=== PATIENT | female | born 1990 | race Caucasian/White ===

== ENCOUNTER 2017-06-20 01:06 | Inpatient (IN) | payer OTHER ==
[~2017-06-20] VITALS: Ht 165.1 cm; Wt 101.5 kg
--- NOTE | ~2017-06-20 | HC ---
[facility] [place] [address] CONSULTATION Name: TIFFANIE LAYTON Room #: 200-I [facility] IN .R.#: [id number] Admission: 06/20/17 Attend Phys: Joseph Hayes MD Discharge: 06/22/17 Date of : 86 Report #: [id number] THIS REPORT FOR: //name// CC: Joseph LUIS DATE OF SERVICE: 06/20/2017 HISTORY OF PRESENT ILLNESS: This is a 27-year-old female patient who was evaluated and discussed with the family. The patient was evaluated by me for the possibility of seizure. A detail history and physical examination is there and I reviewed that and the family brought her in because there was a possibility of seizure. She never had a history of seizure in the past. There was no tonic-clonic activity was noticed. She basically talks very little, but whenever she talks it does make sense and she is appropriate. REVIEW OF SYSTEMS: Indicate that she has a history of anxiety. She has a lost child and she is concerned with losing other children. She did have a rash recently, but that was a minor rash. She does take clonazepam and Lexapro. She does have a history of anxiety and depression. This was her relevant 14-point review of system. PAST MEDICAL HISTORY: Anxiety and depression. FAMILY HISTORY: There is no history of seizures in the family. 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 She does not smoke or drink. PHYSICAL EXAMINATION: GENERAL: Indicate she talks very slowly, but when she talks she does make sense. She is oriented and she can follow simple commands. NEUROLOGIC: Cranial nerves examination 2-12 was unremarkable. Neuromuscular examination is also unchanged. She does not appear to have any meningeal sign. CARDIAC: Unremarkable. VITAL SIGNS: Blood pressure is 94/65, respirations is 20, pulse is 63, temperature is 98.4. LABORATORY DATA: Her white count is 11.2, but she did get 2 dosages of prednisone for her rash. I do not see any imaging study in this patient. IMPRESSION: This patient has very atypical features. It is difficult to put her symptoms in any organic pathology. We will see what the workup shows. If workup is negative, she may have to consider psychiatric consult in this patient. RECOMMENDATIONS: Get the workup done in this patient as I ordered. Especially [address] [address] CONSULTATION Name: TIFFANIE LAYTON Room #: 200-I [facility] IN .R.#: [id number] Admission: 06/20/17 Attend Phys: Joseph Hayes MD Discharge: 06/22/17 Date of : 86 Report #: [id number] we will get an MRI and an EEG. If MRI and EEG are negative, then I will suggest considering a psychiatric consult in this patient. Thank you very much for this referral and if you have any question, please feel free to contact me. <ELECTRONICALLY SIGNED> By: Abisai Toth MD 06/28/172000 1129 20 Abisai Toth MD /jean-pierre
--- NOTE | ~2017-06-20 | H ---
[facility] [place] [address] HISTORY AND PHYSICAL Name: TIFFANIE LAYTON Room #: 200-I ADM IN ..#: [id number] Admission: 06/20/17 Attend Phys: Joseph Hayes MD Discharge: Date of : 86 Report #: [id number] THIS REPORT FOR: //name// CC: Joseph HOOKS DATE OF SERVICE: 06/20/2017 ATTENDING PHYSICIAN: Dr. Hayes. PRIMARY CARE PHYSICIAN: Dr. Tommy Hooks. CHIEF COMPLAINT: Delirium. HISTORY OF PRESENT ILLNESS: The patient is a 27-year-old female who was sent as a direct admit from [place] due to delirium. 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 She actually sat down on the floor and then laid down on the floor and passed out. The co-workers were trained to wake her up and she was out of it for a brief period of time. Afterwards, she was very sleepy and not acting like herself. She was complaining of a mild headache and she was taken to [place]. Her initial workup did show a mildly elevated lactate, but otherwise was negative. She had not been having any fevers. In the last few days, she and her spouse had both developed a rash in their upper extremities and chest area in which she was started on prednisone. She only had two doses and her rash was improving. Her spouse's rash was also improving, but he did not undergo any steroid treatment. They did not have any exposure to any chemicals or new hygiene products or detergents that he is aware of. At [place], she was also diagnosed with a sinusitis and was started on Augmentin. Her CT of the head was negative there. Her spouse states that she was very sleepy throughout the evening, but would wake up startled and confused and then would have some repetitive conversations, for example, she kept dosing off, but then waking up wondering where she was and talking to people that were in the room, but when she goes back to sleep and wake up again, she would ask the same questions and was not aware that she had already been talking with her family. By evening around dinner time, she was acting more normal and actually ate her dinner, but then afterward, she again started becoming very sleepy, complained of dizziness and headache and then was having some staring episodes. The family has been concerned about absence seizures. She has never had a history of seizures. They did not see any type of tremors or shaking. At their request, she was transferred here for Neurology evaluation. She has never had any history of similar episodes in the past. She does have a history of anxiety for which her spouse states stems from losing a child shortly after a few years ago. Since that time, she has been started on clonazepam because she was [facility] [address] [place] [address] HISTORY AND PHYSICAL Name: TIFFANIE LAYTON Room #: 200-I [facility] IN [facility]#: [id number] Admission: 06/20/17 Attend Phys: Joseph Hayes MD Discharge: Date of : 86 Report #: [id number] having anxiety and vivid thoughts of losing her other children due to various accidents. 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 The patient is currently sleepy, but arousable. She did answer most questions appropriately. She was aware of her spouse in the room, was able to tell me his name and her kids names, the current month and the year and current place. She does continue to complain of a headache, she is denying any neck stiffness. They have not had any recent travel outside the country, denies any recent tick bites. PAST MEDICAL HISTORY: Anxiety and depression. PAST SURGICAL HISTORY: x 3. ALLERGIES: None. HOME MEDICATIONS: Clonazepam 0.5 mg daily p.r.n., naproxen p.r.n., Lexapro 20 mg daily. SOCIAL HISTORY: The patient lives at home with her and kids. 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 She does not have a history of alcohol, tobacco or drug use. FAMILY HISTORY: No history of seizures in the family. Both her parents are alive and healthy. REVIEW OF SYSTEMS: Unobtainable due to altered mental status. PHYSICAL EXAMINATION: GENERAL: The patient is lethargic, but arousable female, in no acute distress. VITAL SIGNS: Temperature is 36.8, heart rate 62, respirations 14, blood pressure 99/60, oxygen 99% on room air. HEENT: PERRLA. Sclerae is nonicteric. She does have some horizontal nystagmus bilaterally with EOMs. Oral mucosa is pink and moist. NECK: Supple. No nuchal rigidity. She does not have any cervical lymphadenopathy. RESPIRATORY: Breath sounds are clear bilaterally. No wheezing or rhonchi. CARDIOVASCULAR: Normal S1, S2. No murmurs, rubs or gallops. ABDOMEN: Soft, round, nontender with positive bowel sounds. VASCULAR: No edema noted. Pedal pulses are 2+. NEUROLOGIC: The patient is lethargic, but will arouse easily and was oriented x 3. She answers questions, but does keep her eyes closed and dozes off during the assessment. She does have some horizontal nystagmus. Few times during the assessment, she did have some staring episodes in which she did not answer questions, but then seemed to snap out of it and then was again able to start responding to questions. She is moving all extremities equally, although she [facility] [address] [place] [address] HISTORY AND PHYSICAL Name: TIFFANIE LAYTON Room #: 200-I ADM IN [facility]#: [id number] Admission: 06/20/17 Attend Phys: Joseph Hayes MD Discharge: Date of : 86 Report #: [id number] was slow with any movements to command. Her speech is overall slow. SKIN: Intact. There is a very slight rash in bilateral upper arms and chest. LABORATORY AND DIAGNOSTICS: Lab work done at [place] showed a WBC of 9.7, hemoglobin 14.6, platelets 243. Sodium 139, potassium 3.4, BUN 16, creatinine 0.8, glucose 75, LFTs were within normal limits. Lactate was 2.2, then 2.1, then 2.4. CT of the head showed no acute findings. UA was negative. Urine drug screen was negative. ASSESSMENT AND PLAN: 1. Altered mental status. There is concern at this point because of her headaches and elevated lactate that she may have a viral or aseptic meningitis. We will go ahead and check an LP in the morning and send fluid for culture and gram stain and protein, glucose and cell count. We will empirically start antibiotics for meningitis including vancomycin and Rocephin as well as acyclovir. 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 This may also be due to absence seizures. Neurology is consulted for further recommendations. There is also possibility of conversion disorder and we may need to consult psyche if these other things are ruled out. 2. Hypokalemia. This will be replaced. Follow labs. 3. Deep venous thrombosis prophylaxis. Place sequential compression devices. We will continue to follow the patient closely throughout the hospitalization and make changes based on clinical status. <ELECTRONICALLY SIGNED> By: EVA Dan 06/20/17 1037 [id number] EVA Dan /nt
[2017-06-20 02:43] VITALS: BP 99/60
[2017-06-20 04:38] VITALS: BP 94/65
[2017-06-20 04:47] LABS: CALCIUM 8.5 mg/dL (8.5-10.1); CREATININE 0.8 mg/dL (0.6-1.0); POTASSIUM 3.3 mmol/L (3.5-5.1)
[2017-06-20 04:50] LABS: PROTIME 10.1 Seconds (9.3-11.4)
[2017-06-20 04:53] LABS: ALBUMIN 3.1 g/dL (3.4-5.0); TOTAL BILIRUBIN 0.2 mg/dL (<0.1-1.0)
[2017-06-20 04:58] LABS: HEMATOCRIT 38.2 % (37.0-47.0); HEMOGLOBIN 13.2 gm/dL (12.0-15.0); MCH 31.3 pg (26.0-34.0); MCHC 34.6 g/dL (28.0-37.0); MCV 90.4 fL (80.0-100.0); RBC 4.23 mil/uL (4.20-5.00); RDW 11.9 % (10.5-14.5); WBC 11.2 thou/uL (4.0-11.0)
[2017-06-20 10:40] LABS: CSF CLARITY CLEAR; CSF COLOR COLORLESS; CSF RBC 1 /mm3; CSF WBC 1 /mm3 (0-10); VOLUME 10 ml
[2017-06-20 10:47] LABS: CSF GLUCOSE 61 mg/dL (40-70); CSF PROTEIN 42 mg/dL (15-45)
[2017-06-20 12:18] LABS: TSH 2.509 uIU/mL (0.358-3.740)
[2017-06-20 14:31] VITALS: BP 111/67
[2017-06-20 19:05] VITALS: BP 116/72
[2017-06-20 23:47] VITALS: BP 96/62
[2017-06-21 03:39] VITALS: BP 81/53
[2017-06-21 06:50] LABS: ABSOLUTE NEUTROPHILS 5.5 thou/uL (1.4-8.2); BASOPHILS 0.4 % (0.0-2.0); EOSINOPHILS 0.9 % (0.0-3.0); HEMATOCRIT 39.4 % (37.0-47.0); HEMOGLOBIN 13.7 gm/dL (12.0-15.0); LYMPHOCYTES 33.3 % (24.0-44.0); MCH 31.7 pg (26.0-34.0); MCHC 34.8 g/dL (28.0-37.0); MCV 91.1 fL (80.0-100.0); MONOCYTES 7.2 % (1.0-8.0); PLATELET COUNT 210 thou/uL (150-400); POLYS 58.2 % (36.0-66.0); RBC 4.32 mil/uL (4.20-5.00); WBC 9.4 thou/uL (4.0-11.0)
[2017-06-21 06:59] LABS: CALCIUM 8.2 mg/dL (8.5-10.1); CREATININE 0.8 mg/dL (0.6-1.0); POTASSIUM 3.6 mmol/L (3.5-5.1)
[2017-06-21 16:00] VITALS: BP 105/66
[2017-06-21 19:03] VITALS: BP 102/65
[2017-06-22 04:04] VITALS: BP 87/56
[2017-06-22 11:19] LABS: HSV PCR SOURCE CSF
[2017-06-22] MEDS ORDERED: IMITREX 50 MG T50 MG PO (15:26)
[2017-06-22 15:44] VITALS: BP 87/56
[2017-06-23 19:11] LABS: HSV 1 DNA Negative (Negative); HSV 2 DNA Negative (Negative)
== END 2017-06-22 17:00 | disposition home or self-care (01) | DRG 948 ==
LOC: 2N 01:06
PROVIDERS: Hospitalist; Nurse Practitioner Acute Care; Psychiatry & Neurology Neuromuscular Medicine
PROC: B01B1ZZ Fluoroscopy of Spinal Cord using Low Osmolar Contrast (ICD-10-PCS; principal; 2017-06-20)
PROC: 009U3ZZ Drainage of Spinal Canal, Percutaneous Approach (ICD-10-PCS; principal; 2017-06-20)
DX: R41.82 Altered mental status, unspecified (principal); E87.6 Hypokalemia; F41.9 Anxiety disorder, unspecified; F32.9 Major depressive disorder, single episode, unspecified
CPT/HCPCS: 10081